=== PATIENT | female | born 2005 | race Caucasian/White ===

== ENCOUNTER 2024-03-18 17:37 | Emergency (ER) | payer BC ==
[~2024-03-18] VITALS: Ht 162.6 cm; Wt 113.4 kg
[2024-03-18 17:47] VITALS: BP 111/85; TEMP 98.6
[2024-03-18 18:46] VITALS: O2SAT 98
[2024-03-18] MEDS ORDERED: PRED50TA PO (18:53)
== END 2024-03-18 18:57 | disposition home or self-care (01) ==
LOC: ER 17:38
DX: T78.1XXA Other adverse food reactions, not elsewhere classified, initial encounter (principal); F32.A Depression, unspecified; Z79.899 Other long term (current) drug therapy; X58.XXXA Exposure to other specified factors, initial encounter